=== PATIENT | female | born 1950 | race Caucasian/White ===

== ENCOUNTER → 2016-10-05 17:35 | Outpatient (CLI) | payer MEDICARE, OTHER ==
[2014-07-08 08:16] VITALS: BMI 35.5
[~2016-10-05 17:35] MED LIST: ASPIRIN 81 MG E81 MG PO; BENADRYL25 M1; BENADRYL25 MG PO; BETAPACE240 MG PO; BYSTOLIC10 MG PO; CALCIUM 600+D T1 TA1 PO; CHLORASEPTIC S180 ML MM; CLONAZEPAM2 MG/TAB PO; COLACE100 MG PO; CYMBALTA60 MG PO; FLEXERIL10 MG PO; HYDROCHLOROTH12.5 M1 PO; KLONOPIN0.5 MG PO; MOBIC7.5 MG PO; MOTRIN600 MG PO; NEURONTIN 300300 MG; PERCOCET 5/3251 TA1 PO; PREVACID30 MG; PRILOSEC20 MG PO; TRAVATAN Z2.5 ML LEFT EYE; ZOVIRAX400 MG PO; ZYRTEC10 M1 PO; [UNRECOGNIZED DRUG - OTHER]
== END | disposition home or self-care (01) ==
LOC: D.MAMMO 15:30
DX: Z12.31 Encounter for screening mammogram for malignant neoplasm of breast (principal)